=== PATIENT | male | born 1980 | race Caucasian/White ===

== ENCOUNTER 2020-09-12 14:31 | Emergency (ER) | payer OTHER ==
[2020-09-12 14:56] VITALS: BP 146/86; PULSE 103; TEMP 98.3; BMI 37.9
[2020-09-12] MEDS ORDERED: KETOROLAC TROMETHAMINE 30 MG/1 ML VIAL IM ONE (15:10)
[2020-09-12] MEDS ORDERED: KETOROLAC TROMETHAMINE 30 MG/1 ML VIAL ONE (15:12)
== END 2020-09-12 15:43 | disposition home or self-care (01) ==
LOC: JERFT 14:31
PROC: 3E0233Z Introduction of Anti-inflammatory into Muscle, Percutaneous Approach (ICD-10-PCS; principal; 2020-09-12)
DX: K08.89 Other specified disorders of teeth and supporting structures (principal)
CPT/HCPCS: 99284-25